=== PATIENT | female | born 1980 | race Caucasian/White ===

== ENCOUNTER 2016-06-05 21:12 | Emergency (ER) | payer SELFPAY ==
--- NOTE | 2016-06-05 22:00 | ED NURSING NOTES ---
Clinical Report - Nurses [facility] [address] [place] [address] 06/05/2016 21:13 Patient: REDD ALFARO TRIAGE Triage time 2120. Acuity: LEVEL 4. Chief Complaint: pt in c/o mutiple spots of "infection...where ever I have gotten a cut or a scrap over the last 3-4 days" pt has some redness and warmth to sights, some on hands have drainage present. 21:20. --21:35 Lori Bermudez R.N. 21:20 06/05/16. BP: 124/84. HR: 100. RR: 20. O2 saturation: 99%. Temp: 98.3 F. Pain level now: 07/10. --21:35 Lori Bermudez R.N. Weight: 90.7 kg stated. Height/Length: 69 inches Per Patient. BMI: 29.5. --21:33 Lori Bermudez R.N. Medications None. --21:35 Lori Bermudez R.N. Allergies Sulfa Antibiotics. --21:35 Lori Bermudez R.N. Penicillins. --21:35 Lori Bermudez R.N. History Arrived by private vehicle. Historian: patient. Unaccompanied. PAST MEDICAL HX: Last normal menstrual period- 4 weeks. SOCIAL HX: Light tobacco smoker (cigarette)- less than 1/2 a pack per day. History of drug use: methamphetamines, marijuana. (last used heroin 2 years ago, last used meth 2 weeks ago). No alcohol use. --21:35 Lori Bermudez R.N. PROBLEMS: Vomiting. Gastroesophageal Reflux Disease. Abscess. Hives. Cellulitis. MRSA Infection. Paronychia. Wound Infection. Hypertension. --21:32 Lori Bermudez R.N. ADDITIONAL SURGERIES: Adenoidectomy. Right hand surgery after fx. Tonsillectomy. --21:32 Lori Bermudez R.N. Interventions ID band on patient. To treatment room. --21:35 Lori Bermudez R.N. PHYSICAL ASSESSMENT 21:30. Ambulatory to room. Patient gowned. GENERAL / NEURO / PSYCH: Alert. Appears anxious. Oriented X 4. HEENT: Mucous membranes are pink. RESPIRATORY: Respirations not labored. CVS: Capillary refill less than 2 seconds. SKIN: Skin is warm. Drainage. Skin tenderness present. Swelling present. Increased warmth present. Erythema present. --21:36 Lori Bermudez R.N. NURSING PROGRESS NOTES 21:20. Patient gowned. Head of bed elevated. Reassurance given. Patient identifiers checked. Call light placed in reach. Side rails up. Bed placed in lowest position. Patient ready for evaluation- chart flagged. --21:36 Lori Bermudez R.N. 21:40 06/05/2016 [id number] PERTUSSIS IM 0.5 mL given. 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 Given in the left ventral gluteus. Vaccine information statement provided. --21:45 Lori Bermudez R.N. 21:46 06/05/2016 Motrin PO Tablets 600 mg given. --21:51 Lori Bermudez R.N. 21:47 06/05/2016 DOXYCYCLINE HYCLATE PO Capsules 100 mg given. Allergies verified and confirmed 5 rights. --21:51 Lori Bermudez R.N. 21:55. ( left leg outlined by skin marker by TITA , pt to f/u with in 3 days for re-check, sooner if redness swelling past lines). --22:11 Lori Bermudez R.N. DISPOSITION / DISCHARGE 22:05. Condition at departure: unchanged and stable. No learning barriers present. Discharge instructions provided and reviewed with the patient. Reviewed medication(s) (motrin, doxycyclin). Patient verbalized understanding. Written instructions provided in Polish. The patient was discharged home and unaccompanied at time of discharge. She left the Emergency Department ambulatory and via private vehicle. Patient driving. --22:15 Lori Bermudez R.N. 22:05 06/05/16. BP: 118/78. HR: 96. RR: 18. O2 saturation: 100%. Temp: deferred. Pain level now: 07/10. --22:15 Lori Bermudez R.N. Locked/Released at 06/05/2016 22:15 by Lori Bermudez R.N.
--- NOTE | 2016-06-05 22:00 | ED CLINICAL REPORT ---
Clinical Report - Physicians/Mid Levels [facility] [address] [place] [address] 06/05/2016 21:13 Patient: REDD ALFARO Arrived- By private vehicle. Historian- patient. HISTORY OF PRESENT ILLNESS Chief Complaint: SKIN RASH. This started yesterday and is still present and worsening. It was abrupt in onset and has been constant but is not gone now. It is described as painful and burning. It has been located on the left leg. No cause has been identified. No recent medication, insect bite or food exposure. Was not recently exposed to poison mary or poison oak. (hx of IV drug use. reports no use for the past year. no fever, n/v. states she cut herself on the top of the left the foot recently.). Similar symptoms previously: Recent medical care: Not recently seen/assessed. REVIEW OF SYSTEMS No fever, chills, difficulty breathing, nausea or vomiting. All systems otherwise negative, except as recorded above. PAST HISTORY See nurses notes. Last tetanus immunization was more than 5 years ago. Medications: None. Allergies: Penicillins. Sulfa Antibiotics. SOCIAL HISTORY Smoker- current status unknown. History of drug use. No alcohol use. No recent travel. Is a local resident. FAMILY HISTORY Negative. ADDITIONAL NOTES The nursing notes have been reviewed. PHYSICAL EXAM Vital Signs: 06/05/2016 21:20 BP: 124/84. HR: 100. RR: 20. O2 saturation: 99%. Temp: 98.3 F. Pain level now: 4/10. Blood pressure normal. Oxygen saturation normal. Appearance: Alert. Oriented X3. No acute distress. Eyes: Pupils equal, round and reactive to light. Conjunctivae and eyelids normal. ENT: Ears normal. Nose normal. Pharynx normal. Neck: Neck supple. CVS: Normal heart rate and rhythm. Heart sounds normal. Respiratory: No respiratory distress. Breath sounds normal. Chest nontender. Abdomen: Nontender. No organomegaly. Skin: Cellulitis (left lower extremity anterior proximal palm to the dorsum of the foot. No abscess, crepitus, or mass. abrassion to the dorsum of the left foot. no FB.). (scabs of various stages of healing noted to the hands. no signs of infection. no active bleeding. no FB.). PROGRESS AND PROCEDURES Course of Care: The patient is a pleasant 36-year-old female with past medical history significant for MRSA presenting for evaluation of cellulitis to the left lower extremity. Patient has no systemic signs and symptoms at this time. Patient without any history of immunocompromising conditions. No evidence of necrotizing fasciitis or other more sinister type of infection. No signs of abscessreadily drainable in the emergency department. Patient with medical allergiesrequiring different antibiotic from standard protocol. Had discussion with patient in regards to doxycycline. Patient states thatshe would like a medication that is affordable. Entertain other alternatives to doxycycline however because of the patient's allergies topenicillin/penicillin type medicationsas well as sulfa,recommended patient to still take doxycycline despite the slight increase in costs. Patient is able to find coupon onlineand was eventually agreeable to doxycycline. First dose of antibiotics provided here in the emergency department. Patient tolerated this well. Vital signs here in the emergency department continues to be normal. Patient is resting in bed and in no acute distress. Patient is nontoxic. Patient appears to be a good outpatient candidate and reliable. Discussed with patient workup, diagnosis, home care, follow-up, and return precautions. All questions have been answered. The patient expressed understanding of these instructions and was agreeable to them. Disposition: Discharged. Condition: good. CLINICAL IMPRESSION 06/05/2016 21:20 BP: 124/84. HR: 100. RR: 20. O2 saturation: 99%. Temp: 98.3 F. Pain level now: 4/10. Blood pressure normal. Oxygen saturation normal. Cellulitis of the left lower leg (acute). need for tetanus booster. INSTRUCTIONS Your Current Medications: CONTINUE TAKING THE FOLLOWING MEDICATIONS: None*. Prescription Medications: Doxycycline 100 mg: Take 1 capsule orally every 12 hours for 10 days. No refill. (Disp 20 caps) OTC Medications: Motrin (available over the counter): take according to label instructions. Follow-up: Return to the emergency department. Follow up with your doctor in three days. Reason for referral: recheck today's concerns. Summary of care provided to patient via paper. Screening today revealed the patient's blood pressure to be in the normal range. The patient should follow up with a primary care provider for blood pressure management. Understanding of the discharge instructions verbalized by patient. (Electronically signed by Aj Timmons Dr. 06/06/2016 5:41)
--- NOTE | 2016-06-05 22:00 | ED ORDER SUMMARY ---
..... Patient: REDD ALFARO OrderSheet [facility] VisitID: [id number] [address] [place] [address] 36y, F Registration Date/Time: 06/05/2016 ORDER SHEET Weight: 90.7 kg (stated) Allergies: Sulfa Antibiotics, Penicillins GENERAL ORDERS: MEDICATION ORDERS: Vblxwpa-Kxbbvy-Eqamf Pertussis IM 0.5 mL (NOW, per protocol) (21:43 06/05/2016 Yossi Garcia) (21:45 DDean R.N.) Motrin PO 600 mg (NOW) (:43 06/05/2016 Yossi Garcia) (Ack 21:46 DDean R.N.) (21:51 DDean R.N.) Doxycycline Hyclate PO 100 mg (NOW) (:43 06/05/2016 Yossi Garcia) (Ack 21:46 DDean R.N.) (21:51 DDean R.N.) IV FLUIDS: ORDER SHEET NOTES: [Electronically signed by Lori Bermudez R.N. (22:15 06/05/2016)] [Electronically signed by Aj Timmons Dr. (05:41 06/06/2016)] [Electronically locked/signed by Lori Bermudez R.N. (22:15 06/05/2016)]
--- NOTE | 2016-06-05 22:00 | ED NURSING NOTES ---
Clinical Report - Nurses [facility] [address] [place] [address] 06/05/2016 21:13 Patient: REDD ALFARO TRIAGE Triage time 2120. Acuity: LEVEL 4. Chief Complaint: pt in c/o mutiple spots of "infection...where ever I have gotten a cut or a scrap over the last 3-4 days" pt has some redness and warmth to sights, some on hands have drainage present. 21:20. --21:35 Lori Bermudez R.N. 21:20 06/05/16. BP: 124/84. HR: 100. RR: 20. O2 saturation: 99%. Temp: 98.3 F. Pain level now: 07/10. --21:35 Lori Bermudez R.N. Weight: 90.7 kg stated. Height/Length: 69 inches Per Patient. BMI: 29.5. --21:33 Lori Bermudez R.N. Medications None. --21:35 Lori Bermudez R.N. Allergies Sulfa Antibiotics. --21:35 Lori Bermudez R.N. Penicillins. --21:35 Lori Bermudez R.N. History Arrived by private vehicle. Historian: patient. Unaccompanied. PAST MEDICAL HX: Last normal menstrual period- 4 weeks. SOCIAL HX: Light tobacco smoker (cigarette)- less than 1/2 a pack per day. History of drug use: methamphetamines, marijuana. (last used heroin 2 years ago, last used meth 2 weeks ago). No alcohol use. --21:35 Lori Bermudez R.N. PROBLEMS: Vomiting. Gastroesophageal Reflux Disease. Abscess. Hives. Cellulitis. MRSA Infection. Paronychia. Wound Infection. Hypertension. --21:32 Lori Bermudez R.N. ADDITIONAL SURGERIES: Adenoidectomy. Right hand surgery after fx. Tonsillectomy. --21:32 Lori Bermudez R.N. Interventions ID band on patient. To treatment room. --21:35 Lori Bermudez R.N. PHYSICAL ASSESSMENT 21:30. Ambulatory to room. Patient gowned. GENERAL / NEURO / PSYCH: Alert. Appears anxious. Oriented X 4. HEENT: Mucous membranes are pink. RESPIRATORY: Respirations not labored. CVS: Capillary refill less than 2 seconds. SKIN: Skin is warm. Drainage. Skin tenderness present. Swelling present. Increased warmth present. Erythema present. --21:36 Lori Bermudez R.N. NURSING PROGRESS NOTES 21:20. Patient gowned. Head of bed elevated. Reassurance given. Patient identifiers checked. Call light placed in reach. Side rails up. Bed placed in lowest position. Patient ready for evaluation- chart flagged. --21:36 Lori Bermudez R.N. 21:40 06/05/2016 [id number] PERTUSSIS IM 0.5 mL given. 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 Given in the left ventral gluteus. Vaccine information statement provided. --21:45 Lori Bermudez R.N. 21:46 06/05/2016 Motrin PO Tablets 600 mg given. --21:51 Lori Bermudez R.N. 21:47 06/05/2016 DOXYCYCLINE HYCLATE PO Capsules 100 mg given. Allergies verified and confirmed 5 rights. --21:51 Lori Bermudez R.N. 21:55. ( left leg outlined by skin marker by TITA , pt to f/u with in 3 days for re-check, sooner if redness swelling past lines). --22:11 Lori Bermudez R.N. DISPOSITION / DISCHARGE 22:05. Condition at departure: unchanged and stable. No learning barriers present. Discharge instructions provided and reviewed with the patient. Reviewed medication(s) (motrin, doxycyclin). Patient verbalized understanding. Written instructions provided in Barbadian. The patient was discharged home and unaccompanied at time of discharge. She left the Emergency Department ambulatory and via private vehicle. Patient driving. --22:15 Lori Bermudez R.N. 22:05 06/05/16. BP: 118/78. HR: 96. RR: 18. O2 saturation: 100%. Temp: deferred. Pain level now: 07/10. --22:15 Lori Bermudez R.N. Locked/Released at 06/05/2016 22:15 by Lori Bermudez R.N.
--- NOTE | 2016-06-05 22:00 | ED ORDER SUMMARY ---
..... Patient: REDD ALFARO OrderSheet [facility] VisitID: [id number] [address] [place] [address] 36y, F Registration Date/Time: 06/05/2016 ORDER SHEET Weight: 90.7 kg (stated) Allergies: Sulfa Antibiotics, Penicillins GENERAL ORDERS: MEDICATION ORDERS: Ozbntmb-Ltgsjs-Fipyi Pertussis IM 0.5 mL (NOW, per protocol) (21:43 06/05/2016 Yossi Garcia) (21:45 DDean R.N.) Motrin PO 600 mg (NOW) (:43 06/05/2016 Yossi Garcia) (Ack 21:46 DDean R.N.) (21:51 DDean R.N.) Doxycycline Hyclate PO 100 mg (NOW) (:43 06/05/2016 Yossi Garcia) (Ack 21:46 DDean R.N.) (21:51 DDean R.N.) IV FLUIDS: ORDER SHEET NOTES: [Electronically signed by Lori Bermudez R.N. (22:15 06/05/2016)] [Electronically signed by Aj Timmons Dr. (05:41 06/06/2016)] [Electronically locked/signed by Lori Bermudez R.N. (22:15 06/05/2016)]
--- NOTE | 2016-06-06 05:41 | ED MAR SUMMARY ---
..... Medication Administration Record [facility] [address] [place] [address] Patient: REDD ALFARO Visit ID: [id number] 36y, F Weight: 90.7 kg Height/Length: 69 in BMI: 29.5 ALLERGIES: Penicillins, Sulfa Antibiotics Given 21:40 06/05/2016 Lori Bermudez R.N. Medication Administered: XRVMYXD-KLRKAU-MCFRD PERTUSSIS [IM], Dose: 0.5 mL IM. Medication Ordered: Bmxkpku-Vishoi-Ionks Pertussis IM 0.5 mL (NOW, per protocol). Given 21:46 06/05/2016 Lori Bermudez R.N. Medication Administered: MOTRIN [PO], Dose: 600 mg Tablets PO. Medication Ordered: Motrin PO 600 mg (NOW). Given 21:47 06/05/2016 Lori Bermudez R.N. Medication Administered: DOXYCYCLINE HYCLATE [PO], Dose: 100 mg Capsules PO. Medication Ordered: Doxycycline Hyclate PO 100 mg (NOW).
--- NOTE | 2016-06-06 05:41 | ED MED RECONCILIATION SUMMARY ---
Patient: REDD ALFARO Medication Reconciliation Report [facility] VisitID: [id number] [address] [place] [address] 36y, F Registration Date/Time: 06/05/2016 Weight: 90.7 kg Height/Length: 69 in. BMI: 29.5 ALLERGIES: Penicillins, Sulfa Antibiotics The patient's Home Medications are listed below: NONE. The source(s) of the original Home Medication information: Not obtained. The following Medications were given to the patient in the Emergency Department: AOYXGCL-YIOYHN-YHSUQ PERTUSSIS [IM] IM 0.5 mL, administered: 06/05/2016 9:40:00 PM DOXYCYCLINE HYCLATE [PO] PO 100 mg, administered: 06/05/2016 9:47:00 PM Motrin [PO] PO 600 mg, administered: 06/05/2016 9:46:00 PM The following Medications were prescribed to the patient: Motrin (available over the counter): take according to label instructions. -- Aj Timmons Dr. Doxycycline 100 mg: Take 1 capsule orally every 12 hours for 10 days. No refill.(Disp 20 caps) -- Aj Timmons Dr.
--- NOTE | 2016-06-06 05:41 | ED MED RECONCILIATION SUMMARY ---
Patient: REDD ALFARO Medication Reconciliation Report [facility] VisitID: [id number] [address] [place] [address] 36y, F Registration Date/Time: 06/05/2016 Weight: 90.7 kg Height/Length: 69 in. BMI: 29.5 ALLERGIES: Penicillins, Sulfa Antibiotics The patient's Home Medications are listed below: NONE. The source(s) of the original Home Medication information: Not obtained. The following Medications were given to the patient in the Emergency Department: [id number]-TDFOTE-SCFBL PERTUSSIS [IM] IM 0.5 mL, administered: 06/05/2016 9:40:00 PM DOXYCYCLINE HYCLATE [PO] PO 100 mg, administered: 06/05/2016 9:47:00 PM Motrin [PO] PO 600 mg, administered: 06/05/2016 9:46:00 PM The following Medications were prescribed to the patient: Motrin (available over the counter): take according to label instructions. -- Aj Timmons Dr. Doxycycline 100 mg: Take 1 capsule orally every 12 hours for 10 days. No refill.(Disp 20 caps) -- Aj Timmons Dr.
--- NOTE | 2016-06-06 05:41 | ED MAR SUMMARY ---
..... Medication Administration Record [facility] [address] [place] [address] Patient: REDD ALFARO Visit ID: [id number] 36y, F Weight: 90.7 kg Height/Length: 69 in BMI: 29.5 ALLERGIES: Penicillins, Sulfa Antibiotics Given 21:40 06/05/2016 Lori Bermudez R.N. Medication Administered: IJCPGEJ-KSLEFL-NKETE PERTUSSIS [IM], Dose: 0.5 mL IM. Medication Ordered: Jstaowl-Iyhoog-Ybdqp Pertussis IM 0.5 mL (NOW, per protocol). Given 21:46 06/05/2016 Lori Bermudez R.N. Medication Administered: MOTRIN [PO], Dose: 600 mg Tablets PO. Medication Ordered: Motrin PO 600 mg (NOW). Given 21:47 06/05/2016 Lori Bermudez R.N. Medication Administered: DOXYCYCLINE HYCLATE [PO], Dose: 100 mg Capsules PO. Medication Ordered: Doxycycline Hyclate PO 100 mg (NOW).
--- NOTE | 2016-06-06 05:41 | ED DISCHARGE INSTRUCTIONS ---
Patient: REDD ALFARO General Instructions [facility] VisitID: [id number] [place] [address] 36y, F Registration Date/Time: 06/05/2016 06/05/2016 21:20 BP: 124/84. HR: 100. RR: 20. O2 saturation: 99%. Temp: 98.3 F. Pain level now: 4/10. Blood pressure normal. Oxygen saturation normal. Cellulitis of the left lower leg (acute). need for tetanus booster. INSTRUCTIONS Your Current Medications: CONTINUE TAKING THE FOLLOWING MEDICATIONS: None*. Prescription Medications: Doxycycline 100 mg: Take 1 capsule orally every 12 hours for 10 days. No refill. (Disp 20 caps) OTC Medications: Motrin (available over the counter): take according to label instructions. Follow-up: Return to the emergency department. Follow up with your doctor in three days. Reason for referral: recheck today's concerns. Summary of care provided to patient via paper. Screening today revealed the patient's blood pressure to be in the normal range. The patient should follow up with a primary care provider for blood pressure management. Understanding of the discharge instructions verbalized by patient. ADDITIONAL INFORMATION Cellulitis You have an infection of the skin known as cellulitis. This usually starts with a scrape, cut, insect bite, blister or other opening in the skin which becomes infected. This is a serious condition. It must be watched closely to be sure the infection is not spreading. With antibiotic treatment, the size of the red area will gradually shrink in size until the skin returns to normal. This will take 7-10 days. The red area should never increase in size once the antibiotic medicine has been started. Occasionally, an infection will be resistant to one antibiotic and another one will have to be used. Home Care: 1) Limit the use of the affected part, since excess movement can cause the infection to spread. 2) If the infection is on your leg, walk as little as possible during the first few days of the treatment. Keep your leg elevated while sitting. This will reduce swelling. 3) Take all of the antibiotic medicine exactly as directed until it is gone. Be careful not to miss any doses, especially during the first seven days. Follow Up with your doctor or this facility as directed. Check the infected area daily for the warning signs listed below. Get Prompt Medical Attention if any of the following occur: -- Spreading area of redness -- Increasing swelling or pain -- Appearance of pus or drainage -- Fever over 100.4 F (38.0 C) oral, or over 101.4 F (38.6 C) rectal, after two days on antibiotics Staph Infection (MRSA) "Staph" is the short name for the common bacteria called "staphylococcus aureus". Staph bacteria are often present on the skin without causing an infection. If it gets under the skin an infection occurs. This causes redness, tenderness, swelling and sometimes fluid drainage. MRSA stands for "Methicillin-Resistant Staph Aureus". Unlike a common staph infection, MRSA bacteria are resistant to the usual antibiotics and harder to treat. Also, MRSA is more toxic than common staph bacteria. It can spread quickly throughout the body and cause a life-threatening illness. MRSA is spread to others by direct physical contact with the bacteria. MRSA can also be transmitted from items contaminated by a person who has the bacteria, such as bandages, towels, bed sheets, or sports equipment. It is not spread through the air. Once you have a MRSA skin infection, you are at risk of having it recur in the future. If MRSA infection is suspected, the doctor may take a wound culture to confirm the diagnosis. Any abscess will be drained. One or sometimes two antibiotics that work against MRSA will be prescribed. Home Care: 1) Take any antibiotics prescribed exactly as directed until they are gone. 2) Follow the same washing procedures as outlined for Household Members below. 3) Keep draining wounds covered with clean, dry bandages. Change dressings as they become soiled. 4) You and those in contact with you should wash their hands frequently with soap and warm water or use an alcohol-based hand shower enclosure installer. Do this after each time you change the bandage or touch the wound. 5) Avoid sharing personal items such as towels, washcloths, razors, clothing, or uniforms. Wash soiled sheets, towels or clothes in hot water with laundry detergent. Use an automatic clothes dryer set on high to kill any remaining bacteria. 6) Remove any artificial nails and nail azeri. 7) If you use a gym, wipe down equipment before and after each use. Treatment Of Household Members If you have been diagnosed with possible MRSA infection, those living with you are at higher risk of carrying the bacteria on their skin or in their nose, even if there is no sign of infection. Bacteria must be removed from the skin of all household members (including you) at the same time, so that it is not passed back and forth. Advise them to remove the bacteria as follows: Wash your whole body (scalp to toes) daily for five days with Hibiclens (chlorhexidine). Scrub fingernails with a brush for one minute twice a day. If any skin infections are present (boils, abscess, infected cut) these must be treated by a doctor. Washing alone will not treat a MRSA infection. Clean counter tops and children's toys; do not share personal items such as toothbrush and razors. It is okay to share glasses, plates, utensils. If antibiotic ointment was prescribed use it as directed. Follow Up with your doctor or as advised by our staff. If a wound culture was taken, call as directed in two days to obtain the results. If the culture result is positive for MRSA, tell medical personnel in the future that you were treated for this type of infection. Get Prompt Medical Attention if any of the following occur: -- Increasing redness, swelling or pain -- Red streaks in the skin around the wound -- Weakness or dizziness -- New appearance of pus or drainage from the wound -- New fever over 100.4 F (38.0 C) Doxycycline Monohydrate Oral tablet What is this medicine? DOXYCYCLINE (dox rupa pa) is a tetracycline antibiotic. It kills certain bacteria or stops their growth. It is used to treat many kinds of infections, like dental, skin, respiratory, and urinary tract infections. It also treats acne, Lyme disease, malaria, and certain sexually transmitted infections. How should I use this medicine? Take this medicine by mouth with a full glass of water. Follow the directions on the prescription label. It is best to take this medicine without food, but if it upsets your stomach take it with food. Take your medicine at regular intervals. Do not take your medicine more often than directed. Take all of your medicine as directed even if you think you are better. Do not skip doses or stop your medicine early. Talk to your detective regarding the use of this medicine in children. Special care may be needed. While this drug may be prescribed for children as young as 8 years old for selected conditions, precautions do apply. What side effects may I notice from receiving this medicine? Side effects that you should report to your doctor or health intensive care unit registered nurse as soon as possible: allergic reactions like skin rash, itching or hives, swelling of the face, lips, or tongue difficulty breathing fever itching in the rectal or genital area pain on swallowing redness, blistering, peeling or loosening of the skin, including inside the mouth severe stomach pain or cramps unusual bleeding or bruising unusually weak or tired yellowing of the eyes or skin Side effects that usually do not require medical attention (report to your doctor or health intensive care unit registered nurse if they continue or are bothersome): diarrhea loss of appetite nausea, vomiting What may interact with this medicine? antacids barbiturates control pills bismuth subsalicylate carbamazepine methoxyflurane other antibiotics phenytoin vitamins that contain iron warfarin What if I miss a dose? If you miss a dose, take it as soon as you can. If it is almost time for your next dose, take only that dose. Do not take double or extra doses. Where should I keep my medicine? Keep out of the reach of children. Store at room temperature, below 30 degrees C (86 degrees F). Protect from light. Keep container tightly closed. Throw away any unused medicine after the expiration date. Taking this medicine after the expiration date can make you seriously ill. What should I tell my health care provider before I take this medicine? They need to know if you have any of these conditions: liver disease long exposure to sunlight like working outdoors stomach problems like colitis an unusual or allergic reaction to doxycycline, tetracycline antibiotics, other medicines, foods, dyes, or preservatives or trying to get breast-feeding What should I watch for while using this medicine? Tell your doctor or health intensive care unit registered nurse if your symptoms do not improve. Do not treat diarrhea with over the counter products. Contact your doctor if you have diarrhea that lasts more than 2 days or if it is severe and watery. Do not take this medicine just before going to bed. It may not dissolve properly when you lay down and can cause pain in your throat. Drink plenty of fluids while taking this medicine to also help reduce irritation in your throat. This medicine can make you more sensitive to the sun. Keep out of the sun. If you cannot avoid being in the sun, wear protective clothing and use sunscreen. Do not use sun lamps or tanning beds/booths. control pills may not work properly while you are taking this medicine. Talk to your doctor about using an extra method of control. If you are being treated for a sexually transmitted infection, avoid sexual contact until you have finished your treatment. Your sexual partner may also need treatment. Avoid antacids, aluminum, calcium, magnesium, and iron products for 4 hours before and 2 hours after taking a dose of this medicine. If you are using this medicine to prevent malaria, you should still protect yourself from contact with mosquitos. Stay in screened-in areas, use mosquito nets, keep your body covered, and use an insect repellent. You have been given the following additional information: Cellulitis MRSA Skin Infection, Suspected Or Confirmed Doxycycline Monohydrate Oral tablet (Electronically signed by Aj Timmons Dr. 06/06/2016 5:41)
== END 2016-06-05 22:05 | disposition home or self-care (01) ==
LOC: ED SRH 21:12
DX: L03.116 Cellulitis of left lower limb (principal); I10 Essential (primary) hypertension; K21.9 Gastro-esophageal reflux disease without esophagitis; Z88.2 Allergy status to sulfonamides; Z88.0 Allergy status to penicillin; Z23 Encounter for immunization

== ENCOUNTER 2016-09-23 09:21 | Emergency (ER) | payer SELFPAY ==
--- NOTE | 2016-09-23 12:12 | ED CLINICAL REPORT ---
Clinical Report - Physicians/Mid Levels [place] [address] [place] [address] 09/23/2016 9:22 [id number] Time Seen: 09:34; initial patient contact. Arrived- By private vehicle. Historian- patient. HISTORY OF PRESENT ILLNESS Chief Complaint: Injury to right forearm. The injury happened about 1 week ago. (unk/abscess). Occurred at home. Patient is experiencing moderate pain. Patient denies injury to the head or neck. REVIEW OF SYSTEMS The patient has had swelling. No chills or fever. She has had skin lesion. All systems otherwise negative, except as recorded above. PAST HISTORY Vomiting. Gastroesophageal Reflux Disease. Abscess. Hives. Acute Pain. Cellulitis. MRSA Infection. Dental Abscess. Paronychia. Wound Infection. Hypertension. ADDITIONAL SURGERIES: Adenoidectomy. Right hand surgery after fx. Tonsillectomy. Medications: None. Allergies: Penicillins. Sulfa Antibiotics. SOCIAL HISTORY Current every day smoker. No alcohol use or drug use. ADDITIONAL NOTES The nursing notes have been reviewed. PHYSICAL EXAM Appearance: Alert. Oriented X3. No acute distress. Skin: Single large abscess with fluctuance, pointing and cellulitis to right arm. Extremities: Right arm: moderate erythema, tenderness and swelling located in the lateral aspect of upper arm. Neurovascular intact distally. Upper extremity otherwise negative. Extremities otherwise negative. Neuro, Vascular and Tendons: Vascular status intact. Sensation intact. Motor intact. Tendon function intact. Neuro: Oriented X 3. PROGRESS AND PROCEDURES Incision & Drainage of Abscess: Per protocol, time-out completed immediately before the procedure. The risks of the procedure, benefits and alternatives were explained. Anesthesia provided using 2% lidocaine. Skin cleansed with Hibiclens. The abscess was incised with a #11 surgical blade. A large amount of pus was drained. Cavity was irrigated with saline and packed with gauze. Sample obtained for cultures. A dressing was applied. Estimated blood loss: 5 mL. Disposition: Discharged home in good and improved condition. Condition: good. CLINICAL IMPRESSION Single deep abscess to the right upper extremity with incision and drainage. INSTRUCTIONS (You may also return here or go to urgent care in 2 days for packing change). Prescription Medications: Hydrocodone/APAP 5mg / 325mg: take 1 orally every 6 hours as needed for pain. Dispense ten (10). No refill. Doxycycline 100 mg: Take 1 capsule orally every 12 hours for 7 days. No refill. Follow-up: Follow up with your doctor in two days for packing removal. Call for an appointment. Screening today revealed the patient's blood pressure to be in the pre-hypertensive range. The patient should follow up with a primary care provider for blood pressure management. (Electronically signed by Jalil Samuels Dr. 09/23/2016 22:08)
--- NOTE | 2016-09-23 12:12 | ED CLINICAL REPORT ---
Clinical Report - Physicians/Mid Levels [place] [address] [place] [address] 09/23/2016 9:22 [id number] Time Seen: 09:34; initial patient contact. Arrived- By private vehicle. Historian- patient. HISTORY OF PRESENT ILLNESS Chief Complaint: Injury to right forearm. The injury happened about 1 week ago. (unk/abscess). Occurred at home. Patient is experiencing moderate pain. Patient denies injury to the head or neck. REVIEW OF SYSTEMS The patient has had swelling. No chills or fever. She has had skin lesion. All systems otherwise negative, except as recorded above. PAST HISTORY Vomiting. Gastroesophageal Reflux Disease. Abscess. Hives. Acute Pain. Cellulitis. MRSA Infection. Dental Abscess. Paronychia. Wound Infection. Hypertension. ADDITIONAL SURGERIES: Adenoidectomy. Right hand surgery after fx. Tonsillectomy. Medications: None. Allergies: Penicillins. Sulfa Antibiotics. SOCIAL HISTORY Current every day smoker. No alcohol use or drug use. ADDITIONAL NOTES The nursing notes have been reviewed. PHYSICAL EXAM Appearance: Alert. Oriented X3. No acute distress. Skin: Single large abscess with fluctuance, pointing and cellulitis to right arm. Extremities: Right arm: moderate erythema, tenderness and swelling located in the lateral aspect of upper arm. Neurovascular intact distally. Upper extremity otherwise negative. Extremities otherwise negative. Neuro, Vascular and Tendons: Vascular status intact. Sensation intact. Motor intact. Tendon function intact. Neuro: Oriented X 3. PROGRESS AND PROCEDURES Incision & Drainage of Abscess: Per protocol, time-out completed immediately before the procedure. The risks of the procedure, benefits and alternatives were explained. Anesthesia provided using 2% lidocaine. Skin cleansed with Hibiclens. The abscess was incised with a #11 surgical blade. A large amount of pus was drained. Cavity was irrigated with saline and packed with gauze. Sample obtained for cultures. A dressing was applied. Estimated blood loss: 5 mL. Disposition: Discharged home in good and improved condition. Condition: good. CLINICAL IMPRESSION Single deep abscess to the right upper extremity with incision and drainage. INSTRUCTIONS (You may also return here or go to urgent care in 2 days for packing change). Prescription Medications: Hydrocodone/APAP 5mg / 325mg: take 1 orally every 6 hours as needed for pain. Dispense ten (10). No refill. Doxycycline 100 mg: Take 1 capsule orally every 12 hours for 7 days. No refill. Follow-up: Follow up with your doctor in two days for packing removal. Call for an appointment. Screening today revealed the patient's blood pressure to be in the pre-hypertensive range. The patient should follow up with a primary care provider for blood pressure management. (Electronically signed by Jalil Samuels Dr. 09/23/2016 22:08)
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
--- NOTE | 2016-09-23 12:12 | ED ORDER SUMMARY ---
..... Patient: REDD ALFARO OrderSheet [facility] VisitID: [id number] [place] [address] 36y, F Registration Date/Time: 09/23/2016 ORDER SHEET Weight: 86.1 kg (stated) Allergies: Penicillins, Sulfa Antibiotics GENERAL ORDERS: I&D Tray (10:31 09/23/2016 Denzel Garcia) (10:37 RKaruga) Culture, Wound Deep (Arm) (pus) Urgent (11:16 09/23/2016 Denzel Garcia) (Ack 11:20 RKaruga) (14:50 MWinterer R.N.) MEDICATION ORDERS: Lidocaine Injection 2 % (soln) (NOW) (10:33 09/23/2016 Denzel Garcia) (Ack 10:48 RKaruga) (11:08 LSathol hospitalnaveen R.N.) IV FLUIDS: ORDER SHEET NOTES: [Electronically signed by Christal Link R.N. (14:50 09/23/2016)] [Electronically signed by Jalil Samuels Dr. (22:08 09/23/2016)] [Electronically locked/signed by Christal Link R.N. (14:50 09/23/2016)]
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
--- NOTE | 2016-09-23 12:12 | ED ORDER SUMMARY ---
..... Patient: REDD ALFARO OrderSheet [facility] VisitID: [id number] [place] [address] 36y, F Registration Date/Time: 09/23/2016 ORDER SHEET Weight: 86.1 kg (stated) Allergies: Penicillins, Sulfa Antibiotics GENERAL ORDERS: I&D Tray (10:31 09/23/2016 Denzel Garcia) (10:37 RKaruga) Culture, Wound Deep (Arm) (pus) Urgent (11:16 09/23/2016 Denzel Garcia) (Ack 11:20 RKaruga) (14:50 MWinterer R.N.) MEDICATION ORDERS: Lidocaine Injection 2 % (soln) (NOW) (10:33 09/23/2016 Denzel Garcia) (Ack 10:48 RKaruga) (11:08 [facility] IV FLUIDS: ORDER SHEET NOTES: [Electronically signed by Christal Link R.N. (14:50 09/23/2016)] [Electronically signed by Jalil Samuels Dr. (22:08 09/23/2016)] [Electronically locked/signed by Christal Link R.N. (14:50 09/23/2016)]
--- NOTE | 2016-09-23 22:08 | ED MAR SUMMARY ---
..... Medication Administration Record [facility] [address] [place] [address] Patient: REDD ALFARO Visit ID: [id number] 36y, F Weight: 86.1 kg Height/Length: 69 in BMI: 28.1 ALLERGIES: Penicillins, Sulfa Antibiotics Given 10:53 09/23/2016 Josselyn Balbuena RDima Medication Administered: LIDOCAINE [INJECTION], Dose: 2 % Injection. Medication Ordered: Lidocaine Injection 2 % (soln) (NOW).
--- NOTE | 2016-09-23 22:08 | ED MED RECONCILIATION SUMMARY ---
Patient: REDD ALFARO Medication Reconciliation Report [facility] VisitID: [id number] [place] [address] 36y, F Registration Date/Time: 09/23/2016 Weight: 86.1 kg Height/Length: 69 in. BMI: 28.1 ALLERGIES: Penicillins, Sulfa Antibiotics The patient's Home Medications are listed below: NONE. The source(s) of the original Home Medication information: Not obtained. The following Medications were given to the patient in the Emergency Department: Lidocaine [Injection] Injection 2 %, administered: 09/23/2016 10:53:00 AM The following Medications were prescribed to the patient: Hydrocodone/APAP 5mg / 325mg: take 1 orally every 6 hours as needed for pain. Dispense ten (10). No refill. -- Jalil Samuels Dr. Doxycycline 100 mg: Take 1 capsule orally every 12 hours for 7 days. No refill. -- Jalil Samuels Dr.
--- NOTE | 2016-09-23 22:08 | ED DISCHARGE INSTRUCTIONS ---
Patient: REDD ALFARO General Instructions [facility] VisitID: [id number] [place] [address] 36y, F Registration Date/Time: 09/23/2016 Single deep abscess to the right upper extremity with incision and drainage. INSTRUCTIONS (You may also return here or go to urgent care in 2 days for packing change). Prescription Medications: Hydrocodone/APAP 5mg / 325mg: take 1 orally every 6 hours as needed for pain. Dispense ten (10). No refill. Doxycycline 100 mg: Take 1 capsule orally every 12 hours for 7 days. No refill. Follow-up: Follow up with your doctor in two days for packing removal. Call for an appointment. Screening today revealed the patient's blood pressure to be in the pre-hypertensive range. The patient should follow up with a primary care provider for blood pressure management. ADDITIONAL INFORMATION Abscess [Incision & Drainage] An abscess (sometimes called a boil) occurs when bacteria get trapped under the skin and begin to grow. Pus forms inside the abscess as the body responds to the bacteria. An abscess can occur with an insect bite, ingrown hair, blocked oil gland, pimple, cyst, or puncture wound. Treatment of your abscess has required an incision to drain the pus. If the abscess pocket was large, a gauze packing may have been inserted. This will need to be removed and possibly replaced on your next visit. Antibiotics are not required in the treatment of a simple abscess, unless the infection is spreading into the skin around the wound (known as cellulitis). Healing of the wound will take about one to two weeks depending on the size of the abscess. Healthy tissue will grow from the bottom and sides of the opening until it seals over. Home Care: The wound may drain for the first two days. Cover the wound with a clean dry dressing. If the dressing becomes soaked with blood or pus, change it. If a gauze packing was placed inside the abscess cavity, you may be advised to remove it yourself. You may do this in the shower. Once the packing is removed, you should wash the area in the shower or bath 3 to 4 times a day, until the skin opening has closed. If you were prescribed antibiotics, take them as directed until they are all gone. You may use acetaminophen (Tylenol) or ibuprofen (Motrin, Advil) to control pain, unless another pain medicine was prescribed. [ NOTE: If you have liver disease or ever had a stomach ulcer, talk with your doctor before using these medicines.] Follow Up with your doctor as advised by our staff. If a gauze packing was inserted in your wound, it should be removed in 1-2 days. Check your wound every day for the signs of worsening infection listed below. Get Prompt Medical Attention if any of the following occur: Increasing redness or swelling Red streaks in the skin leading away from the wound Increasing local pain or swelling Continued pus draining from the wound two days after treatment Fever of 100.4F (38C) or higher, or as directed by your healthcare provider Hydrocodone Bitartrate, Acetaminophen Oral tablet What is this medicine? ACETAMINOPHEN; HYDROCODONE (a set a ENMANUEL karyn fen; nicolle droe KOE done) is a pain reliever. It is used to treat mild to moderate pain. How should I use this medicine? Take this medicine by mouth. Swallow it with a full glass of water. Follow the directions on the prescription label. If the medicine upsets your stomach, take the medicine with food or milk. Do not take more than you are told to take. Talk to your global lead regarding the use of this medicine in children. This medicine is not approved for use in children. What side effects may I notice from receiving this medicine? Side effects that you should report to your doctor or health acute care occupational therapist as soon as possible: allergic reactions like skin rash, itching or hives, swelling of the face, lips, or tongue breathing problems confusion feeling faint or lightheaded, falls stomach pain yellowing of the eyes or skin Side effects that usually do not require medical attention (report to your doctor or health acute care occupational therapist if they continue or are bothersome): nausea, vomiting stomach upset What may interact with this medicine? alcohol antihistamines isoniazid medicines for depression, anxiety, or psychotic disturbances medicines for sleep muscle relaxants naltrexone narcotic medicines (opiates) for pain phenobarbital ritonavir tramadol What if I miss a dose? If you miss a dose, take it as soon as you can. If it is almost time for your next dose, take only that dose. Do not take double or extra doses. Where should I keep my medicine? Keep out of the reach of children. This medicine can be abused. Keep your medicine in a safe place to protect it from theft. Do not share this medicine with anyone. Selling or giving away this medicine is dangerous and against the law. Store at room temperature between 15 and 30 degrees C (59 and 86 degrees F). Protect from light. Keep container tightly closed. Throw away any unused medicine after the expiration date. Discard unused medicine and used packaging carefully. Pets and children can be harmed if they find used or lost packages. What should I tell my health care provider before I take this medicine? They need to know if you have any of these conditions: brain tumor Crohn's disease, inflammatory bowel disease, or ulcerative colitis drink more than 3 alcohol-containing drinks per day drug abuse or addiction head injury heart or circulation problems kidney disease or problems going to the bathroom liver disease lung disease, asthma, or breathing problems an unusual or allergic reaction to acetaminophen, hydrocodone, other opioid analgesics, other medicines, foods, dyes, or preservatives or trying to get breast-feeding What should I watch for while using this medicine? Tell your doctor or health acute care occupational therapist if your pain does not go away, if it gets worse, or if you have new or a different type of pain. You may develop tolerance to the medicine. Tolerance means that you will need a higher dose of the medicine for pain relief. Tolerance is normal and is expected if you take the medicine for a long time. Do not suddenly stop taking your medicine because you may develop a severe reaction. Your body becomes used to the medicine. This does NOT mean you are addicted. Addiction is a behavior related to getting and using a drug for a non-medical reason. If you have pain, you have a medical reason to take pain medicine. Your doctor will tell you how much medicine to take. If your doctor wants you to stop the medicine, the dose will be slowly lowered over time to avoid any side effects. You may get drowsy or dizzy when you first start taking the medicine or change doses. Do not drive, use machinery, or do anything that may be dangerous until you know how the medicine affects you. Stand or sit up slowly. There are different types of narcotic medicines (opiates) for pain. If you take more than one type at the same time, you may have more side effects. Give your health care provider a list of all medicines you use. Your doctor will tell you how much medicine to take. Do not take more medicine than directed. Call emergency for help if you have problems breathing. The medicine will cause constipation. Try to have a bowel movement at least every 2 to 3 days. If you do not have a bowel movement for 3 days, call your doctor or health acute care occupational therapist. Too much acetaminophen can be very dangerous. Do not take Tylenol (acetaminophen) or medicines that contain acetaminophen with this medicine. Many non-prescription medicines contain acetaminophen. Always read the labels carefully. Doxycycline Monohydrate Oral tablet What is this medicine? DOXYCYCLINE (dox rupa pa) is a tetracycline antibiotic. It kills certain bacteria or stops their growth. It is used to treat many kinds of infections, like dental, skin, respiratory, and urinary tract infections. It also treats acne, Lyme disease, malaria, and certain sexually transmitted infections. How should I use this medicine? Take this medicine by mouth with a full glass of water. Follow the directions on the prescription label. It is best to take this medicine without food, but if it upsets your stomach take it with food. Take your medicine at regular intervals. Do not take your medicine more often than directed. Take all of your medicine as directed even if you think you are better. Do not skip doses or stop your medicine early. Talk to your global lead regarding the use of this medicine in children. Special care may be needed. While this drug may be prescribed for children as young as 8 years old for selected conditions, precautions do apply. What side effects may I notice from receiving this medicine? Side effects that you should report to your doctor or health acute care occupational therapist as soon as possible: allergic reactions like skin rash, itching or hives, swelling of the face, lips, or tongue difficulty breathing fever itching in the rectal or genital area pain on swallowing redness, blistering, peeling or loosening of the skin, including inside the mouth severe stomach pain or cramps unusual bleeding or bruising unusually weak or tired yellowing of the eyes or skin Side effects that usually do not require medical attention (report to your doctor or health acute care occupational therapist if they continue or are bothersome): diarrhea loss of appetite nausea, vomiting What may interact with this medicine? antacids barbiturates control pills bismuth subsalicylate carbamazepine methoxyflurane other antibiotics phenytoin vitamins that contain iron warfarin What if I miss a dose? If you miss a dose, take it as soon as you can. If it is almost time for your next dose, take only that dose. Do not take double or extra doses. Where should I keep my medicine? Keep out of the reach of children. Store at room temperature, below 30 degrees C (86 degrees F). Protect from light. Keep container tightly closed. Throw away any unused medicine after the expiration date. Taking this medicine after the expiration date can make you seriously ill. What should I tell my health care provider before I take this medicine? They need to know if you have any of these conditions: liver disease long exposure to sunlight like working outdoors stomach problems like colitis an unusual or allergic reaction to doxycycline, tetracycline antibiotics, other medicines, foods, dyes, or preservatives or trying to get breast-feeding What should I watch for while using this medicine? Tell your doctor or health acute care occupational therapist if your symptoms do not improve. Do not treat diarrhea with over the counter products. Contact your doctor if you have diarrhea that lasts more than 2 days or if it is severe and watery. Do not take this medicine just before going to bed. It may not dissolve properly when you lay down and can cause pain in your throat. Drink plenty of fluids while taking this medicine to also help reduce irritation in your throat. This medicine can make you more sensitive to the sun. Keep out of the sun. If you cannot avoid being in the sun, wear protective clothing and use sunscreen. Do not use sun lamps or tanning beds/booths. control pills may not work properly while you are taking this medicine. Talk to your doctor about using an extra method of control. If you are being treated for a sexually transmitted infection, avoid sexual contact until you have finished your treatment. Your sexual partner may also need treatment. Avoid antacids, aluminum, calcium, magnesium, and iron products for 4 hours before and 2 hours after taking a dose of this medicine. If you are using this medicine to prevent malaria, you should still protect yourself from contact with mosquitos. Stay in screened-in areas, use mosquito nets, keep your body covered, and use an insect repellent. You have been given the following additional information: Abscess, Incision And Drainage Hydrocodone Bitartrate, Acetaminophen Oral tablet Doxycycline Monohydrate Oral tablet (Electronically signed by Jalil Samuels Dr. 09/23/2016 22:08)
--- NOTE | 2016-09-23 22:08 | ED MAR SUMMARY ---
..... Medication Administration Record [facility] [address] [place] [address] Patient: REDD ALFARO Visit ID: [id number] 36y, F Weight: 86.1 kg Height/Length: 69 in BMI: 28.1 ALLERGIES: Penicillins, Sulfa Antibiotics Given 10:53 09/23/2016 Josselyn Balbuena RDima Medication Administered: LIDOCAINE [INJECTION], Dose: 2 % Injection. Medication Ordered: Lidocaine Injection 2 % (soln) (NOW).
--- NOTE | 2016-09-23 22:08 | ED MED RECONCILIATION SUMMARY ---
Patient: REDD ALFARO Medication Reconciliation Report [facility] VisitID: [id number] [place] [address] 36y, F Registration Date/Time: 09/23/2016 Weight: 86.1 kg Height/Length: 69 in. BMI: 28.1 ALLERGIES: Penicillins, Sulfa Antibiotics The patient's Home Medications are listed below: NONE. The source(s) of the original Home Medication information: Not obtained. The following Medications were given to the patient in the Emergency Department: Lidocaine [Injection] Injection 2 %, administered: 09/23/2016 10:53:00 AM The following Medications were prescribed to the patient: Hydrocodone/APAP 5mg / 325mg: take 1 orally every 6 hours as needed for pain. Dispense ten (10). No refill. -- Jalil Samuels Dr. Doxycycline 100 mg: Take 1 capsule orally every 12 hours for 7 days. No refill. -- Jalil Samuels Dr.
== END 2016-09-23 12:25 | disposition home or self-care (01) ==
LOC: ED SRH 09:21
DX: L02.413 Cutaneous abscess of right upper limb (principal); Z88.0 Allergy status to penicillin; X58.XXXA Exposure to other specified factors, initial encounter; Y93.9 Activity, unspecified; Y92.009 Unspecified place in unspecified non-institutional (private) residence as the place of occurrence of the external cause; Y99.9 Unspecified external cause status; I10 Essential (primary) hypertension; K21.9 Gastro-esophageal reflux disease without esophagitis; F17.210 Nicotine dependence, cigarettes, uncomplicated; Z88.2 Allergy status to sulfonamides
CPT/HCPCS: 90070; 90131; 90309; 90470; 91672